=== PATIENT | female | born 1960 | race Caucasian/White ===

== ENCOUNTER 2021-04-24 13:01 | Emergency (ER) | payer OTHER ==
[~2021-04-24 13:01] MED LIST: Iopamidol-370 76% 500 ML 1 ML ONE
[2021-04-24] MEDS ORDERED: methylPREDNISolone Sod Succ/PF 125 MG/2 ML VIAL ONE (13:19)
[2021-04-24] MEDS ORDERED: Famotidine/PF 20 mg/2ml Vial ONE (13:19)
[2021-04-24] MEDS ORDERED: diphenhydrAMINE 50 MG/ML VIAL ONE (13:19)
[2021-04-24 13:50] LABS: #Basophils 0.1 thou/uL (0.0-0.2); #Eosinphils 0.1 thou/uL (0.0-0.7); #Lymphocytes 1.7 thou/uL (1.20-3.40); #Monocytes 0.6 thou/uL (0.11-0.59); #Neutrophils 5.3 thou/uL (1.40-6.50); %Basophils 1.2 % (0.0-1.0); %Eosinophils 0.9 % (0.0-10.0); %Lymphocytes 21.5 % (21.0-51.0); %Neutrophils 68.4 % (42.0-75.0); Hemoglobin 13.2 g/dL (12.0-16.0); Mean Corpuscular HGB CONC 34.7 g/dL (32.0-36.0); Mean Corpuscular Hemoglobin 29.8 pg (27.0-31.0); Mean Corpuscular Volume 85.9 fL (78.0-98.0); Mean Platelet Volume 8.1 fL (7.4-10.4); Platelet Count 232 thou/uL (130-400); RBC Distribution Width 12.1 % (11.5-14.5); Red Blood Cell (RBC) Count 4.41 mill/uL (4.20-5.40); White Blood Cell (WBC) Count 7.7 thou/uL (4.8-10.8)
[2021-04-24 14:00] LABS: PTT 24.6 sec (22.9-36.1)
[2021-04-24 14:01] LABS: INR-International Normal Ratio 1.1; Prothrombin Time 14.3 sec (12.0-14.7)
[2021-04-24 14:20] LABS: ALT (SGPT) 28 U/L (8-55); AST (SGOT) 42 U/L (5-34); Albumin 3.7 g/dL (3.4-4.8); Alkaline Phosphatase 94 U/L (40-110); Anion Gap 16 mmol/L (10-20); BUN (Urea Nitrogen) 11 mg/dL (9.8-20.1); Bilirubin, Total 0.6 mg/dL (0.2-1.2); CK (CPK) 162 U/L (29-168); Calc. Creatinine Clearance 0 mL/min (70-130); Carbon Dioxide 23 mmol/L (23-31); Chloride 102 mmol/L (98-107); Globulin 4.3 g/dL (2.4-3.5); Glucose 148 mg/dL (80-115); Potassium 4.6 mmol/L (3.5-5.1); Sodium 136 mmol/L (136-145)
[2021-04-24] MEDS ORDERED: Proparacaine 0.5% Opth 15 ML BOT ONE (15:19)
[2021-04-24] MEDS ORDERED: Fluorescein Opthalmic Strip ONE ×2 (15:19→15:22)
[2021-04-24] MEDS ORDERED: Fentanyl 100 MCG/2 ML VIAL ONE ×2 (15:27→20:19)
[2021-04-24] MEDS ORDERED: Ketorolac Tromethamine 30 MG/ML VIAL ONE (18:44)
== END 2021-04-24 20:34 | disposition home or self-care (01) ==
LOC: ERS 13:01
DX: S05.01XA Injury of conjunctiva and corneal abrasion without foreign body, right eye, initial encounter (principal); M54.5 Low back pain; G89.29 Other chronic pain; V89.2XXA Person injured in unspecified motor-vehicle accident, traffic, initial encounter
CPT/HCPCS: 36415; 70450; 71260; 72125; 74177; 80053; 82550; 85025; 85610; 85730; 96374; 96375; 96376; G0390; J1200; J1885; J2930; J3010; Q9967; S0028